=== PATIENT | male | born 1965 | race Caucasian/White ===

== ENCOUNTER 2021-06-05 09:46 | Emergency (ER) | payer OTHER ==
[~2021-06-05] VITALS: Ht 182.9 cm; Wt 163.3 kg
[~2021-06-05 09:46] MED LIST: ALLO300 PO; ASPI81CH PO; BUPR150ER PO; CARV25 PO; DABI75; DULO30 PO; ENTRESTO 49 MG1 EACH PO; FURO20 PO; MELA3 PO; METO100ER PO; ROSU10TA PO; TORSE20 PO
[2021-06-05] MEDS ORDERED: INDO50 PO (10:07)
== END 2021-06-05 10:22 | disposition home or self-care (01) ==
LOC: ER 09:46
DX: M10.9 Gout, unspecified (principal); Z76.0 Encounter for issue of repeat prescription; Z79.899 Other long term (current) drug therapy; Z88.8 Allergy status to other drugs, medicaments and biological substances; Z88.5 Allergy status to narcotic agent
CPT/HCPCS: 99283; A9270

== ENCOUNTER 2022-11-23 04:11 | Emergency (ER) | payer OTHER ==
[~2022-11-23] VITALS: Ht 172.7 cm; Wt 136.1 kg
[~2022-11-23 04:11] MED LIST changes: +CYCL10 PO; +INDO50 PO
[2022-11-23] MEDS ORDERED: INDO50 PO (04:43)
[2022-11-23 05:03] VITALS: BP 161/93
== END 2022-11-23 05:01 | disposition home or self-care (01) ==
LOC: ER 04:11
DX: M25.561 Pain in right knee (principal); E66.01 Morbid (severe) obesity due to excess calories; F17.210 Nicotine dependence, cigarettes, uncomplicated; Z68.42 Body mass index [BMI] 45.0-49.9, adult; Z88.5 Allergy status to narcotic agent; Z88.8 Allergy status to other drugs, medicaments and biological substances
CPT/HCPCS: A9270

== ENCOUNTER 2024-01-16 13:36 | Emergency (ER) | payer OTHER ==
[~2024-01-16] VITALS: Ht 182.9 cm; Wt 170.1 kg
[~2024-01-16 13:36] MED LIST changes: +Indomethacin50 MG PO
[2024-01-16] MEDS ORDERED: Diltiazem HCl 5 MG / ML 5ML Vial IV ONE (14:10)
[2024-01-16 14:19] LABS: BASOPHILS ABSOLUTE AUTO 0.03 K/mm3 (0.00-0.23); BASOPHILS PERCENT AUTO 0 % (0-2); EOSINOPHILS ABSOLUTE AUTO 0.06 K/mm3 (0.00-0.68); EOSINOPHILS PERCENT AUTO 1 % (0-6); Hematocrit 38.8 % (37.0-53.0); Hemoglobin 12.7 g/dL (13.5-17.5); IMMATURE GRAN ABSOLUTE AUTO 0.03 K/mm3 (0.00-0.10); IMMATURE GRAN PERCENT AUTO 0 % (0-1); LYMPHOCYTES ABSOLUTE AUTO 1.41 K/mm3 (0.84-5.20); LYMPHOCYTES PERCENT AUTO 17 % (21-46); MONOCYTES ABSOLUTE AUTO 0.55 K/mm3 (0.16-1.47); MONOCYTES PERCENT AUTO 7 % (4-13); Mean Corpuscular HGB 28.5 pg (26.0-34.0); Mean Corpuscular HGB Conc 32.7 g/dL (31.5-36.5); Mean Corpuscular Volume 87 fL (80-100); NEUTROPHILS ABSOLUTE AUTO 6.18 K/mm3 (1.96-9.15); NEUTROPHILS PERCENT AUTO 75 % (41-73); Platelet Count 157 K/mm3 (150-400); RDW Coefficient Variation 15.6 % (11.7-14.2); RDW Standard Deviation 49.1 fL (35.1-46.3); Red Blood Cell Count 4.46 M/mm3 (4.30-5.90); White Blood Cell Count 8.26 K/mm3 (4.00-11.30)
[2024-01-16] MEDS ORDERED: ALLO100 PO (14:29)
[2024-01-16] MEDS ORDERED: ATOR40TA PO (14:29)
[2024-01-16] MEDS ORDERED: MULVITA PO (14:30)
[2024-01-16] MEDS ORDERED: DOXE10 PO (14:30)
[2024-01-16] MEDS ORDERED: Aldactone50 MG PO (14:31)
[2024-01-16] MEDS ORDERED: THERA-D2000 UNIT PO (14:32)
[2024-01-16] MEDS ORDERED: VENL75ER PO (14:32)
[2024-01-16 14:43] LABS: Albumin, Blood 3.4 g/dL (3.4-5.0); Albumin/Globulin Ratio 0.9 (0.8-1.8); Bilirubin, Total 0.7 mg/dL (0.1-1.0); Calcium, Blood 8.8 mg/dL (8.5-10.1); Creatinine, Blood 1.62 mg/dL (0.60-1.20); Globulin, Blood 3.8 g/dL (2.2-4.0); Potassium, Blood 4.1 mmol/L (3.5-5.5); Total Protein, Blood 7.2 g/dL (6.4-8.2)
[2024-01-16 16:45] VITALS: BP 165/97
== END 2024-01-16 17:00 | disposition home or self-care (01) ==
LOC: ER 13:36
PROVIDERS: Emergency Medicine
DX: I48.91 Unspecified atrial fibrillation (principal); G47.33 Obstructive sleep apnea (adult) (pediatric); Z87.891 Personal history of nicotine dependence; Z79.899 Other long term (current) drug therapy; Z88.5 Allergy status to narcotic agent; Z88.8 Allergy status to other drugs, medicaments and biological substances
CPT/HCPCS: 71045; 80053; 83880; 84484; 85025; 93005; 93010; 96374; 99284-25